=== PATIENT | male | born 2000 | race Hispanic/Latino ===

== ENCOUNTER 2020-12-07 19:10 | Emergency (ER) | payer OTHER ==
[~2020-12-07] VITALS: Ht 177.8 cm; Wt 79.5 kg
[2020-12-07 19:11] VITALS: BP 129/83
[2020-12-07] MEDS ORDERED: diphenhydrAMINE 50MG CAP PO ONE (19:45)
[2020-12-07] MEDS ORDERED: KETOROLAC TROMETHAMINE 10 MG TAB PO ONE (19:45)
[2020-12-07] MEDS ORDERED: ONDANSETRON 4 MG ORAL DISINTEGRATING TAB PO ONE (19:45)
[2020-12-07] MEDS ORDERED: diphenhydrAMINE 25MG CAP PO ONE (20:00)
--- NOTE | 2020-12-07 20:01 | REPVR ---
PROCEDURE INFORMATION: Exam: CT Head Without Contrast Exam date and time: 12/07/2020 7:50 PM Age: 20 years old Clinical indication: Pain; Headache not specified; Additional info: New onset headache TECHNIQUE: Imaging protocol: Computed tomography of the head without contrast. Radiation optimization: All CT scans at this facility use at least one of these dose optimization techniques: automated exposure control; mA and/or kV adjustment per patient size (includes targeted exams where dose is matched to clinical indication); or iterative reconstruction. COMPARISON: No relevant prior studies available. FINDINGS: Brain: Normal. No hemorrhage. Unremarkable white matter. No mass effect. Cerebral ventricles: No ventriculomegaly. Bones/joints: Unremarkable. No acute fracture. Paranasal sinuses: Visualized sinuses are unremarkable. No fluid levels. Mastoid air cells: Visualized mastoid air cells are well aerated. Soft tissues: Unremarkable. IMPRESSION: No acute intracranial abnormality. Electronically signed by: Britni Dick On 12/07/2020 20:01:23 PM
[2020-12-07 20:06] LABS: BASO % 0.3 % (0.0-1.0); EOS % 0.4 % (0.0-3.0); HEMATOCRIT 46.7 % (42.0-52.0); HEMOGLOBIN 15.2 g/dl (13.5-17.5); LYMPH % 20.7 % (24.0-44.0); MEAN CORPUSCULAR HEMOGLOBIN 28.4 pg (27.0-33.0); MEAN CORPUSCULAR HGB CONC 32.5 g/dl (32.0-36.5); MEAN CORPUSCULAR VOLUME 87.1 fl (80.0-96.0); MONO # 0.7 10^3/uL (0.0-0.8); MONO % 7.5 % (0.0-5.0); NEUTROPHILS # 6.8 10^3/uL (1.5-8.5); NEUTROPHILS % 70.8 % (36.0-66.0); PLATELET COUNT, AUTOMATED 234 10^3/uL (150-450); RED BLOOD COUNT 5.36 10^6/uL (4.30-6.10); WHITE BLOOD COUNT 9.7 10^3/uL (4.0-10.0)
[2020-12-07] MEDS ORDERED: ACETAMINOPHEN 500 MG TAB PO ONE (20:45)
== END 2020-12-07 21:07 | disposition home or self-care (01) ==
LOC: M ED 19:10
DX: R51.9 Headache, unspecified (principal); K21.9 Gastro-esophageal reflux disease without esophagitis
CPT/HCPCS: 36415; 70450; 80047; 85025; 99283; Q0162

== ENCOUNTER 2023-03-26 11:56 | Emergency (ER) | payer OTHER ==
[~2023-03-26] VITALS: Ht 177.8 cm; Wt 81.4 kg
[2023-03-26] MEDS ORDERED: ACETAMINOPHEN TAB 650MG DOSE (2X325MG) PO ONE (12:15)
[2023-03-26 13:01] LABS: RSV AMPLIFICATION NEGATIVE (NEGATIVE)
[2023-03-26 13:51] LABS: MONO REFLEX EBV COMP NEGATIVE (NEGATIVE)
[2023-03-26] MEDS ORDERED: AMOX500C PO (14:28)
[2023-03-26] MEDS ORDERED: PRED20TA PO (14:28)
[2023-03-26 14:35] VITALS: BP 119/74
[2023-03-27 13:09] LABS: EBV AB TO NUCLEAR ANTIGEN >600.0 U/mL (0.0-17.9); EBV VIRAL CAPSID AG IgG 78.3 U/mL (0.0-17.9); EBV VIRAL CAPSID AG IgM <36.0 U/mL (0.0-35.9)
== END 2023-03-26 14:36 | disposition home or self-care (01) ==
LOC: M ED 11:56
DX: J03.90 Acute tonsillitis, unspecified (principal); K21.9 Gastro-esophageal reflux disease without esophagitis; Z79.52 Long term (current) use of systemic steroids; Z79.2 Long term (current) use of antibiotics

== ENCOUNTER 2023-07-27 09:23 | Inpatient (IN) | payer OTHER ==
[~2023-07-27] VITALS: Ht 177.8 cm; Wt 81.8 kg
[~2023-07-27 09:23] MED LIST: AMOX500C PO; PRED20TA PO
[2023-07-27] MEDS ORDERED: PARO30TA3 PO (09:31)
[2023-07-27] MEDS ORDERED: TRAZ-252 PO (09:31)
[2023-07-27 10:12] LABS: HEMATOCRIT 44.8 % (42.0-52.0); HEMOGLOBIN 15.1 g/dl (13.5-17.5); MEAN CORPUSCULAR HEMOGLOBIN 28.7 pg (27.0-33.0); MEAN CORPUSCULAR HGB CONC 33.7 g/dl (32.0-36.5); MEAN CORPUSCULAR VOLUME 85.2 fl (80.0-96.0); PLATELET COUNT, AUTOMATED 229 10^3/uL (150-450); RED BLOOD COUNT 5.26 10^6/uL (4.30-6.10); WHITE BLOOD COUNT 7.1 10^3/uL (4.0-10.0)
[2023-07-27 10:43] LABS: ETHYL ALCOHOL (ETHANOL) < 0.003 % (0.000-0.010)
[2023-07-27 10:45] LABS: ACETAMINOPHEN LEVEL < 2.0 UG/ML (10.0-20.0); ALBUMIN 4.1 G/DL (3.2-5.2); ALKALINE PHOSPHATASE 51 U/L (46-116); ALT/SGPT 33 U/L (7.0-40); AST/SGOT 11 U/L (<34); BILIRUBIN,DIRECT 0.5 MG/DL (<0.4); BILIRUBIN,TOTAL 1.3 MG/DL (0.3-1.2); BLOOD UREA NITROGEN 8 MG/DL (9-23); CALCIUM LEVEL 9.2 MG/DL (8.5-10.1); CARBON DIOXIDE LEVEL 24 MMOL/L (20-31); CHLORIDE LEVEL 106 MMOL/L (98-107); CREATININE FOR GFR 0.82 MG/DL (0.70-1.30); GLOMERULAR FILTRATION RATE > 60.0 (>60); GLUCOSE, FASTING 90 MG/DL (60-100); POTASSIUM SERUM 4.2 MMOL/L (3.5-5.1); SALICYLATE LEVEL < 3.0 MG/DL (<30); SODIUM LEVEL 140 MMOL/L (136-145); TOTAL PROTEIN 7.6 G/DL (5.7-8.2)
[2023-07-27 10:47] LABS: THYROID STIMULATING HORMONE 0.999 uIU/ML (0.55-4.78)
[2023-07-27] MEDS ORDERED: MED REC IN PROGRESS XX SCH (11:25)
[2023-07-27 11:32] LABS: BARBITURATES URINE NEGATIVE (NEGATIVE); COCAINE METABOLITE URINE NEGATIVE (NEGATIVE); METHADONE URINE NEGATIVE (NEGATIVE); OPIATES URINE NEGATIVE (NEGATIVE)
[2023-07-27 11:33] LABS: AMPHETAMINES LEVEL URINE NEGATIVE (NEGATIVE); CANNABINOIDS URINE NEGATIVE (NEGATIVE); PHENCYCLIDINE URINE NEGATIVE (NEGATIVE)
[2023-07-27 11:34] LABS: BENZODIAZEPINES URINE NEGATIVE (NEGATIVE)
[2023-07-27] MEDS ORDERED: HOME MED LIST COMPLETE! XX SCH (11:35)
[2023-07-27] MEDS ORDERED: LORazepam 2 MG TAB PO STA (18:02)
[2023-07-27] MEDS ORDERED: OLANZapine ORAL DISINTEGRATING TAB 5MG PO ONE (18:05)
[2023-07-28] MEDS ORDERED: traZODone 50 MG TAB PO PRN (12:25)
[2023-07-28] MEDS ORDERED: IBUPROFEN 400MG TAB PO PRN (12:25)
[2023-07-28] MEDS ORDERED: MAALOX 30 ML SUSP *UDC PO PRN (12:25)
[2023-07-28] MEDS ORDERED: diphenhydrAMINE 25MG CAP PO PRN (12:25)
[2023-07-28] MEDS ORDERED: MOM 30ML SUSPENSION UDC PO PRN (12:25)
[2023-07-28] MEDS ORDERED: ACETAMINOPHEN TAB 650MG DOSE (2X325MG) PO PRN (12:25)
[2023-07-28 18:48] VITALS: BP 104/78; TEMP 99.1; O2SAT 97
[2023-07-28] MEDS: PARoxetine 10MG TABLET PO SCH (20:08)
[2023-07-28] MEDS ORDERED: PARoxetine 10MG TABLET PO SCH (21:00)
[2023-07-28] MEDS ORDERED: traMADol 50 MG TAB PO SCH (21:00)
[2023-07-29 05:42] VITALS: BP 97/53; TEMP 97.6; O2SAT 98
[2023-07-29 16:14] VITALS: BP 132/88; TEMP 98.9
[2023-07-29] MEDS: PARoxetine 10MG TABLET PO SCH (20:02)
[2023-07-29] MEDS ORDERED: QUEtiapine FUMARATE 50MG TAB PO SCH (21:00)
[2023-07-30 06:53] VITALS: BP 98/60; TEMP 97.8; O2SAT 100
[2023-07-30 07:35] LABS: CHOLESTEROL RISK RATIO 4.26 (<5); HDL CHOLESTEROL 36.6 MG/DL (>40); LDL CHOLESTEROL 99.4 MG/DL (<100); NON-HDL-C 119.4 MG/DL
[2023-07-30] MEDS ORDERED: QUET50TA4 PO (11:16)
== END 2023-07-30 13:57 | disposition home or self-care (01) | DRG 880 ==
LOC: M ED 09:23 → M ED INP 07-28 12:21 → M PSY 07-28 13:45
PROVIDERS: ADMIT Student in an Organized Health Care Education/Training Program; ATTEND Student in an Organized Health Care Education/Training Program
DX: F41.1 Generalized anxiety disorder (principal); R45.851 Suicidal ideations; G47.00 Insomnia, unspecified

== ENCOUNTER 2024-03-28 06:34 | Day surgery (SDC) | payer OTHER ==
[~2024-03-28] VITALS: Ht 175.3 cm; Wt 90.3 kg
[~2024-03-28 06:34] MED LIST changes: +LEXA5TAB13 PO; +OMEP-173 PO; +PARO30TA3 PO; +PRAZ2CAP PO; +QUET50TA4 PO; +ROZE8TAB16 PO; +TRAZ-252 PO
[2024-03-28] MEDS ORDERED: fentaNYL 100 MCG/2 ML INJECTION As Ordered ONE (08:10)
[2024-03-28] MEDS ORDERED: MIDAZOLAM INJ 2MG/2ML VIAL As Ordered ONE (08:10)
[2024-03-28] MEDS ORDERED: ROCURONIUM BROMIDE 50MG/5ML VIAL As Ordered ONE (08:10)
[2024-03-28] MEDS ORDERED: LIDOCAINE 2% INJ 100 MG/5 ML SYRINGE As Ordered ONE (08:10)
[2024-03-28] MEDS ORDERED: propofoL 200 MG/20 ML VIAL As Ordered ONE (08:10)
[2024-03-28] MEDS ORDERED: SUGAMMADEX SODIUM 500 MG/5 ML VIAL (BRIDION) As Ordered ONE (08:21)
[2024-03-28] MEDS ORDERED: LIDOCAINE 2% 100MG/5ML SDV (FOR ANES.) As Ordered ONE (08:55)
[2024-03-28] MEDS ORDERED: ONDANSETRON 4MG 2ML VIAL As Ordered ONE (08:56)
[2024-03-28] MEDS ORDERED: ACETAMINOPHEN 1000MG 100ML IV BAG As Ordered ONE (08:56)
[2024-03-28] MEDS: EPINEPHrine 1MG/ML INJ 30ML MD-VIAL As Ordered ONE (09:45)
[2024-03-28] MEDS: SODIUM CHLORIDE 0.9% NASAL GEL 15GM (AYR) As Ordered ONE (09:46)
[2024-03-28] MEDS: METHYLENE BLUE 0.5% (5MG/ML) 10 ML AMP (PROVAYBLUE) As Ordered ONE (09:46)
[2024-03-28] MEDS: LIDOCAINE W/EPINEPHRINE 1% 20ML VIAL As Ordered ONE (09:46)
[2024-03-28] MEDS ORDERED: fentaNYL 100 MCG/2 ML INJECTION IV PRN (10:35)
[2024-03-28] MEDS ORDERED: LR 1,000 ML IV SCH ×2 (10:35→11:35)
[2024-03-28] MEDS: HYDROMORPHONE HCL 0.5 MG/ 0.5 ML SYRINGE IV PRN (10:38)
[2024-03-28] MEDS: oxyCODONE 5MG TAB PO PRN (11:02)
[2024-03-28] MEDS: ONDANSETRON 4MG 2ML VIAL IV PRN (11:03)
[2024-03-28] MEDS: AUGMENTIN 875 MG TAB PO ONE (11:46)
[2024-03-28 11:57] VITALS: BP 136/88; TEMP 97.9; O2SAT 97
== END 2024-03-28 12:08 | disposition home or self-care (01) ==
LOC: M SDC 06:34
PROVIDERS: ATTEND Otolaryngology
DX: J34.2 Deviated nasal septum (principal); K21.9 Gastro-esophageal reflux disease without esophagitis; F32.A Depression, unspecified; Z79.899 Other long term (current) drug therapy
CPT/HCPCS: 30520; J0131; J0171; J1100; J1170; J2250; J2405; J3010; Q9968